=== PATIENT | female | born 1960 | race Caucasian/White ===

== ENCOUNTER 2018-10-15 12:31 | Emergency (ER) | payer BC, OTHER ==
[2018-10-15] MEDS ORDERED: Ondansetron PF 4 MG/2 ML Vial ONE ×2 (12:39→13:06)
[2018-10-15] MEDS ORDERED: Morphine 4 MG/ML VIAL ONE ×2 (12:46→13:56)
[2018-10-15] MEDS ORDERED: Ketorolac Tromethamine 30 MG/ML VIAL ONE (12:46)
[2018-10-15 12:59] LABS: #Basophils 0.1 thou/uL (0.0-0.2); #Eosinphils 0.1 thou/uL (0.0-0.7); #Monocytes 1.1 thou/uL (0.11-0.59); #Neutrophils 11.8 thou/uL (1.40-6.50); %Basophils 0.5 % (0.0-1.0); %Eosinophils 0.6 % (0.0-10.0); %Lymphocytes 13.1 % (21.0-51.0); %Monocytes 7.2 % (0.0-10.0); %Neutrophils 78.5 % (42.0-75.0); Hemoglobin 14.5 g/dL (12.0-16.0); Mean Corpuscular HGB CONC 33.1 g/dL (32.0-36.0); Mean Corpuscular Hemoglobin 33.2 pg (27.0-31.0); Mean Platelet Volume 6.9 fL (7.4-10.4); Platelet Count 310 thou/uL (130-400); RBC Distribution Width 10.8 % (11.5-14.5); Red Blood Cell (RBC) Count 4.37 mill/uL (4.20-5.40); White Blood Cell (WBC) Count 15.1 thou/uL (4.8-10.8)
[2018-10-15 13:20] LABS: ALT (SGPT) 28 U/L (8-55); AST (SGOT) 24 U/L (5-34); Albumin 4.7 g/dL (3.5-5.0); Alkaline Phosphatase 79 U/L (40-150); Anion Gap 20 mmol/L (10-20); BUN (Urea Nitrogen) 25 mg/dL (9.8-20.1); Bilirubin, Total 0.3 mg/dL (0.2-1.2); Calc. Creatinine Clearance 0 mL/min (70-130); Calcium 10.3 mg/dL (7.8-10.44); Carbon Dioxide 21 mmol/L (22-29); Chloride 102 mmol/L (98-107); Estimated GFR-MDRD 32; Globulin 2.7 g/dL (2.4-3.5); Glucose 139 mg/dL (70-105); Potassium 3.8 mmol/L (3.5-5.1); Protein, Total 7.4 g/dL (6.0-8.3); Sodium 139 mmol/L (136-145)
[2018-10-15 13:59] LABS: Bilirubin Negative (Negative); Blood, Urine Small (Negative); Clarity CLEAR (Clear); Glucose, Urine (Dipstick) Negative (Negative); Leukocyte Negative (Negative); Nitrite Negative (Negative); Protein, Urine (Dipstick) 100 mg/dL (Neg-Trace); Specific Gravity, Urine 1.006 (1.002-1.036); Urobilinogen 0.2 mg/dL (0.2-1.0); pH, Urine 6.5 (5.0-9.0)
[2018-10-15 14:02] LABS: Bacteria/HPF None Seen HPF (None Seen); Hyaline Casts/LPF 4-6 HYALINE CAST LPF (0-3 Hyaline); Pathc Cast-AUWi Flag 0.87 (0-2.49); WBC/HPF 0-3 HPF (0-3)
[2018-10-15] MEDS ORDERED: Promethazine HCl 25 MG/ML VIAL ONE (14:03)
[2018-10-15 14:30] LABS: Renal Epithelial 0-3 HPF (0-3); Transitional Epithelial 0-3 HPF (0-3)
--- NOTE | 2018-10-15 14:36 | CT ---
ABDOMEN CT WITHOUT CONTRAST PELVIC CT WITHOUT CONTRAST: Date: 10/15/18 HISTORY: Flank pain. Bilateral flank pain since 9:00 this morning. COMPARISON: 11/06/14. FINDINGS: ABDOMEN CT: Lung bases are clear. Heart size is normal. No pericardial effusion. Visualized aorta is of normal ca liber. No periaortic fat stranding. Note is made of a small hiatal hernia. No gastrohepatic, retrocrural, or periportal lymphadenopathy. Gallbladder is surgically absent. Limited evaluation of the solid organs due to lack of IV contrast administration. There is appropriate attenuation of the liver, spleen, pancreas, and right adrenal gland. 1.0 cm nodu le involving the left adrenal gland with attenuation coefficient of 12.6 Hounsfield units. Indetermin ate lesion. Exophytic cyst emanating from the upper pole of the right kidney measuring 0.9 x 1.2 cm with attenuat ion coefficient of 6 Hounsfield units. There is an exophytic hypodensity emanating from the lower mary e of the left kidney measuring 1.5 cm with an attenuation coefficient of 15 Hounsfield units. Cyst wi th a small peripheral calcification suspected. Bilaterally, no hydronephrosis, nephrolithiasis, or pe rinephric fat stranding. Bilateral ureters have a normal caliber. No hydroureter, periureteral fat stranding, or ureterolithia sis. Limited evaluation of the alimentary canal by lack of oral contrast. Nose is made of small hiatal her patrick. Gastric mucosa is unremarkable. Multiple normal caliber small bowel loops. Ileocecal junction is normal. Normal caliber appendix. Scattered fecal material in nondistended, nondilated colon. There a re diverticula in the sigmoid colon. No diverticulitis. CT PELVIS: No pelvic lymphadenopathy, free air, or free fluid. Unremarkable urinary bladder. Uterus is surgicall y absent. Stable postsurgical changes and dorsal column stimulator. IMPRESSION: 1. No evidence of obstructive uropathy. 2. Indeterminate lesion in the left adrenal gland. Nonemergent renal mass protocol CT can be perform ed. 3. Two cysts involving the left kidney. The cyst along the inferior pole of the left kidney has a sm all focus of calcification along its periphery. POS: [facility]
[2018-10-15] MEDS ORDERED: Sucralfate 1 GM/10 ML UDCUP ONE (15:13)
== END 2018-10-15 16:58 | disposition home or self-care (01) ==
LOC: ERS 12:31
DX: K21.9 Gastro-esophageal reflux disease without esophagitis (principal); R11.2 Nausea with vomiting, unspecified; I10 Essential (primary) hypertension; Z79.899 Other long term (current) drug therapy
CPT/HCPCS: 74176; 80053; 81003; 81015; 83690; 84484; 85025; 93005; 96361; 96365; 96375; 96376; J1885; J2270; J2405; J2550

== ENCOUNTER 2018-10-16 15:46 | Observation (INO) | payer OTHER ==
[2018-10-16] MEDS ORDERED: Promethazine HCl 25 MG/ML VIAL ONE (16:16)
[2018-10-16] MEDS ORDERED: Promethazine 25 MG TAB ONE (16:16)
[2018-10-16] MEDS ORDERED: Morphine 2 MG/ML SYRINGE ONE (16:40)
[2018-10-16 17:02] LABS: #Lymphocytes 0.9 thou/uL (1.20-3.40); #Neutrophils 9.2 thou/uL (1.40-6.50); %Basophils 0.3 % (0.0-1.0); %Eosinophils 0.4 % (0.0-10.0); %Lymphocytes 7.8 % (21.0-51.0); %Neutrophils 82.5 % (42.0-75.0); Hemoglobin 12.3 g/dL (12.0-16.0); Mean Corpuscular HGB CONC 33.4 g/dL (32.0-36.0); Mean Platelet Volume 6.7 fL (7.4-10.4); Platelet Count 216 thou/uL (130-400); RBC Distribution Width 10.9 % (11.5-14.5); Red Blood Cell (RBC) Count 3.61 mill/uL (4.20-5.40); White Blood Cell (WBC) Count 11.2 thou/uL (4.8-10.8)
[2018-10-16 17:18] LABS: Bilirubin Negative (Negative); Blood, Urine Small (Negative); Clarity CLOUDY (Clear); Glucose, Urine (Dipstick) Negative (Negative); Leukocyte Large (Negative); Nitrite Negative (Negative); Protein, Urine (Dipstick) Negative (Neg-Trace); Specific Gravity, Urine 1.011 (1.002-1.036); Urobilinogen 0.2 mg/dL (0.2-1.0); pH, Urine 5.5 (5.0-9.0)
[2018-10-16 17:22] LABS: Bacteria/HPF None Seen HPF (None Seen); Pathc Cast-AUWi Flag 1.45 (0-2.49); RBC/HPF 0-3 HPF (0-3)
[2018-10-16] MEDS ORDERED: Sucralfate 1 GM/10 ML UDCUP ONE (17:29)
[2018-10-16 17:33] LABS: Hyaline Casts/LPF 0-3 HYALINE CAST LPF (0-3 Hyaline); Transitional Epithelial 0-3 HPF (0-3)
--- NOTE | 2018-10-16 17:36 | CT ---
HEAD CT WITHOUT CONTRAST: 10/16/18 HISTORY: Loss of consciousness. Fall. COMPARISON: None. FINDINGS: No parenchymal hemorrhage. No extra-axial hematoma. No midline shift. Basilar cisterns are patent. Br ain volume is age appropriate. Cortical mitchell-white matter differentiation is preserved. No evidence of hydrocephalus. Calvarium is intact. Adequate aeration of the sinuses and mastoid air cells. IMPRESSION: No acute intracranial process. POS: [facility]
[2018-10-16 17:50] LABS: ALT (SGPT) 138 U/L (8-55); AST (SGOT) 70 U/L (5-34); Albumin 3.5 g/dL (3.5-5.0); Alkaline Phosphatase 72 U/L (40-150); Anion Gap 12 mmol/L (10-20); BUN (Urea Nitrogen) 35 mg/dL (9.8-20.1); Bilirubin, Total 0.6 mg/dL (0.2-1.2); Calc. Creatinine Clearance 0 mL/min (70-130); Calcium 8.4 mg/dL (7.8-10.44); Carbon Dioxide 20 mmol/L (22-29); Chloride 111 mmol/L (98-107); Estimated GFR-MDRD 16; Globulin 1.9 g/dL (2.4-3.5); Glucose 114 mg/dL (70-105); Potassium 4.1 mmol/L (3.5-5.1); Protein, Total 5.4 g/dL (6.0-8.3); Sodium 139 mmol/L (136-145)
[2018-10-16] MEDS ORDERED: cefTRIAXone\\ROCEPHIN 2 GM VIAL ONE (18:26)
[2018-10-16] MEDS ORDERED: Sodium Chloride 0.9% 100 ML ONE (18:26)
[2018-10-16] MEDS ORDERED: Ondansetron ODT 4 MG TAB SL PRN (20:43)
[2018-10-16] MEDS ORDERED: Ondansetron PF 4 MG/2 ML Vial IVP PRN (20:43)
[2018-10-16] MEDS ORDERED: Sodium Chloride 0.9% 1,000 ML IV SCH ×2 (20:43→22:15)
[2018-10-16] MEDS ORDERED: HYDROcodone/Acetaminophen 5/325 mg Tablet PO PRN ×2 (20:43)
[2018-10-16] MEDS ORDERED: Acetaminophen 325 MG TAB PO PRN (20:43)
[2018-10-16 21:18] VITALS: BMI 29.0
[2018-10-16] MEDS ORDERED: Promethazine 25 MG TAB PO PRN (21:57)
[2018-10-16] MEDS ORDERED: traMADol HCl 50 MG TAB PO PRN (21:58)
[2018-10-16] MEDS ORDERED: Morphine 4 MG/ML VIAL SLOW IVP PRN (22:02)
[2018-10-16] MEDS: traZODone HCl 50 MG TAB PO SCH (22:38)
[2018-10-17] MEDS ORDERED: diphenhydrAMINE 25 MG CAP PO PRN (00:19)
[2018-10-17] MEDS ORDERED: Sodium Chloride 0.9% 1,000 ML IV SCH (03:30)
[2018-10-17] MEDS ORDERED: Ondansetron PF 4 MG/2 ML Vial IVP PRN (03:30)
[2018-10-17] MEDS ORDERED: Ondansetron ODT 4 MG TAB SL PRN (03:31)
[2018-10-17] MEDS ORDERED: Acetaminophen 325 MG TAB PO PRN (03:31)
[2018-10-17 05:20] LABS: #Eosinphils 0.1 thou/uL (0.0-0.7); #Lymphocytes 1.3 thou/uL (1.20-3.40); #Monocytes 0.9 thou/uL (0.11-0.59); #Neutrophils 4.4 thou/uL (1.40-6.50); %Basophils 0.3 % (0.0-1.0); %Eosinophils 1.6 % (0.0-10.0); %Lymphocytes 19.7 % (21.0-51.0); %Monocytes 13.3 % (0.0-10.0); %Neutrophils 65.1 % (42.0-75.0); Mean Corpuscular HGB CONC 33.1 g/dL (32.0-36.0); Mean Corpuscular Hemoglobin 34.2 pg (27.0-31.0); Mean Platelet Volume 6.9 fL (7.4-10.4); Platelet Count 194 thou/uL (130-400); RBC Distribution Width 10.9 % (11.5-14.5); Red Blood Cell (RBC) Count 3.51 mill/uL (4.20-5.40); White Blood Cell (WBC) Count 6.8 thou/uL (4.8-10.8)
[2018-10-17 05:48] LABS: ALT (SGPT) 107 U/L (8-55); AST (SGOT) 44 U/L (5-34); Albumin 3.2 g/dL (3.5-5.0); Alkaline Phosphatase 67 U/L (40-150); Anion Gap 13 mmol/L (10-20); BUN (Urea Nitrogen) 30 mg/dL (9.8-20.1); Bilirubin, Total 0.4 mg/dL (0.2-1.2); Calc. Creatinine Clearance 27 mL/min (70-130); Calcium 7.9 mg/dL (7.8-10.44); Carbon Dioxide 20 mmol/L (22-29); Chloride 112 mmol/L (98-107); Estimated GFR-MDRD 18; Globulin 2.1 g/dL (2.4-3.5); Glucose 86 mg/dL (70-105); Potassium 4.1 mmol/L (3.5-5.1); Protein, Total 5.3 g/dL (6.0-8.3); Sodium 141 mmol/L (136-145)
[2018-10-17 06:16] LABS: Folate (Folic Acid) 10.1 ng/mL (7.0-31.4)
[2018-10-17] MEDS: D5 1/2 NS w/20 mEq KCL 1,000 ML IV SCH ×2 (08:53→16:59)
[2018-10-17] MEDS ORDERED: Cyanocobalamin 1000 MCG/ML VIAL IM SCH (09:00)
--- NOTE | 2018-10-17 16:08 | HP ---
PRIMARY CARE PHYSICIAN: Myself, Dr. Matthew Wylie. After the patient has returned back to [place], has been in [place] for approximately 2-1/2 years, had established with a physician there locally. She is transitioning back here for job in December. She has worked in a nursing field for many years. CHIEF COMPLAINT: Syncope. HISTORY OF PRESENT ILLNESS: The patient was seen in the emergency department the day prior to admission for abdomen pain, flank pain associated with her prior episodes of UTIs and renal calculi. CT showed no renal calculi. The patient was discharged home with pain medications and nausea medications. The patient returned home, slept well, however, subsequently had worsening abdomen pain. Following a trip to the restroom after dry heaves, the patient stood up and walk several feet and then fell over. After speaking with the patient, she had echo for similar episode 6 months ago in [place] with normal ejection fraction, no diastolic dysfunction, was diagnosed with vasovagal syncope following the donation of plasma dehydration. The patient does appear to be dehydrated on admission here. She has not donated any plasma for 6 weeks. She reports she has been doing that for money and help transition herself back to [place] at this point in time. In the emergency department, we found that the patient's urinalysis acutely changed and the patient went into acute renal failure in the last 36 hours, was given Rocephin and IV fluids and is responded well so far, has not really been ambulated yet, but denies any chest pain, shortness of breath, palpitations, headaches, vision changes. Positive mild abdomen pain, flank pain, dysuria. No lower extremity edema present. The patient denies any confusion. Review of vital signs on admission to floor, temperature of 98.4, pulse of 67, respiratory rate of 16, oxygen saturation 95% on room air, and blood pressure 121/54. Review of past medical, social, surgical history includes no known drug allergies, prior foot sprain with peroneal tendonitis in 2013, hypertension, chronic pain, depression, incomplete voiding, for which she has not followed up with a urologist in the last 3 years as recommended. PAST SURGICAL HISTORY: Include back surgery x2, , cholecystectomy, hysterectomy with BSO, knee arthroscopy, right thumb procedure, and unspecified bladder suspension. SOCIAL HISTORY: The patient denies current alcohol or drug use. Has more local social support of sister and daughter. CURRENT HOME MEDICATIONS: Listed as: 1. Trazodone 50 mg one tablet p.o. at bedtime. 2. Tramadol 50 mg one tablet p.o. q.4 to 6 hours p.r.n. pain. 3. Spironolactone 50 mg one tablet p.o. at bedtime. 4. Fluoxetine 40 mg one tablet p.o. at bedtime. 5. Diltiazem 180 mg one tablet p.o. at bedtime. 6. Zyrtec 10 mg one tablet p.o. daily. PHYSICAL EXAMINATION: GENERAL: The patient is alert and oriented, in no acute distress. HEENT: Head is normocephalic and atraumatic. Extraocular movements are intact. Sclerae are white, noninjected. Oral mucosa is slightly dry. NECK: Supple. HEART: Regular rate and rhythm at time of exam. No murmurs auscultated. LUNGS: Clear to auscultation bilaterally. No rubs or wheezes. ABDOMEN: Hyperactive bowel sounds. Nontender. Negative rebound or guarding. No formal CVA tenderness currently. EXTREMITIES: Lower extremities without cyanosis or edema. NEUROLOGIC: The patient is alert and oriented x3. No focal deficits. Speech is normal. The patient's daughter is at bedside. ASSESSMENT AND PLAN: Pyelonephritis, acute renal failure, vasovagal syncope, hypertension, depression, macrocytosis. Morning labs showed that the patient is deficient in B12 giving injection while inpatient and can follow up with oral therapy depending on trend. Continuing the patient's SSRI and diltiazem for blood pressure. The patient has never had any arrhythmia per self report. Given the echo was normal within 6 months, we will not repeat at this point in time. Both episodes are very classic for vasovagal syncope, especially exacerbated by patient's pyelonephritis. Fluid resuscitation with bolus overnight and now with continued IV fluids. Goal tomorrow to mobilize the patient and titrate diet and if the patient is stable, consider discharge home. Job ID: [id number] MTDD
[2018-10-17] MEDS: cefTRIAXone\\ROCEPHIN 2 GM in Sodium Chloride 0.9% 100 ML IVPB SCH (18:24)
[2018-10-17] MEDS ORDERED: FLUoxetine HCl 20 MG CAP PO SCH (21:00)
[2018-10-17] MEDS: traZODone HCl 50 MG TAB PO SCH (21:41)
[2018-10-18] MEDS: D5 1/2 NS w/20 mEq KCL 1,000 ML IV SCH ×2 (01:26→09:23)
[2018-10-18 05:06] LABS: #Basophils 0.1 thou/uL (0.0-0.2); #Eosinphils 0.2 thou/uL (0.0-0.7); #Lymphocytes 1.5 thou/uL (1.20-3.40); #Monocytes 0.8 thou/uL (0.11-0.59); #Neutrophils 4.1 thou/uL (1.40-6.50); %Eosinophils 2.9 % (0.0-10.0); %Lymphocytes 22.3 % (21.0-51.0); %Monocytes 11.8 % (0.0-10.0); %Neutrophils 61.9 % (42.0-75.0); Hemoglobin 12.3 g/dL (12.0-16.0); Mean Corpuscular HGB CONC 33.5 g/dL (32.0-36.0); Mean Corpuscular Hemoglobin 34.1 pg (27.0-31.0); Mean Platelet Volume 7.1 fL (7.4-10.4); Platelet Count 225 thou/uL (130-400); RBC Distribution Width 10.8 % (11.5-14.5); Red Blood Cell (RBC) Count 3.61 mill/uL (4.20-5.40); White Blood Cell (WBC) Count 6.6 thou/uL (4.8-10.8)
[2018-10-18 05:37] LABS: ALT (SGPT) 76 U/L (8-55); AST (SGOT) 23 U/L (5-34); Albumin 3.5 g/dL (3.5-5.0); Alkaline Phosphatase 68 U/L (40-150); Anion Gap 12 mmol/L (10-20); BUN (Urea Nitrogen) 21 mg/dL (9.8-20.1); Bilirubin, Total Less than 0.2 mg/dL (0.2-1.2); Calc. Creatinine Clearance 37 mL/min (70-130); Calcium 8.8 mg/dL (7.8-10.44); Carbon Dioxide 18 mmol/L (22-29); Chloride 111 mmol/L (98-107); Estimated GFR-MDRD 26; Globulin 2.3 g/dL (2.4-3.5); Glucose 107 mg/dL (70-105); Potassium 4.2 mmol/L (3.5-5.1); Protein, Total 5.8 g/dL (6.0-8.3); Sodium 137 mmol/L (136-145)
[2018-10-18 12:10] VITALS: BP 149/81; TEMP 98
[2018-10-18] MEDS: cefTRIAXone\\ROCEPHIN 2 GM in Sodium Chloride 0.9% 100 ML IVPB SCH (14:06)
--- NOTE | 2018-10-18 17:17 | DIS ---
DATE OF ADMISSION: 10/16/2018 DATE OF DISCHARGE: 10/18/2018 PRIMARY CARE PHYSICIAN: Dr. Matthew Wylie. CHIEF COMPLAINT: Abdomen pain, syncope. HISTORY OF PRESENT ILLNESS: The patient has long-standing history of UTIs and kidney stones, presented to the emergency department prior to being admitted the day before with some flank pain. She had a CAT scan that did not show any renal calculi and no obstructions, was discharged home, notably had a vasovagal syncopal episode, had echo approximately six months before, which was normal for similar vasovagal syncopal episode, worked up in [place] following dehydration and giving of plasma. Repeat urinalysis, the patient more grossly fit the profile of UTI to pyelonephritis, was admitted for acute renal failure and infection. The patient had shocked liver, was improved, regarding creatinine and liver function enzymes with hydration and was treated with Rocephin. Urine culture showed no growth at 48 hours. Blood cultures now showed no growth at 48 hours however, the patient felt remarkably better following antibiotics, IV hydration, was ambulatory, and eating well prior to discharge. Discharged home on Keflex 500 mg b.i.d. with followup in clinic for repeat testing of liver enzymes and creatinine with myself, Dr. Matthew Wylie in three days. We will release to work at that point in time. DIAGNOSES: Include; 1. Pyelonephritis. 2. Vasovagal syncope. 3. Acute renal failure. 4. Hypertension. 5. Depression. 6. Macrocytosis. DISCHARGE MEDICATIONS: Include at home; 1. Cetirizine 10 mg. 2. Diltiazem 180 mg. 3. Fluoxetine 40 mg. 4. Promethazine 12.5 mg q.6 hours p.r.n. for nausea. 5. Spironolactone 50 mg at bedtime. 6. Tramadol 50 mg q.4 hours p.r.n. for pain. 7. Trazodone 50 mg one tablet p.o. at bedtime. 8. Keflex as above. DISCHARGE DIET: Renal. DISCHARGE ACTIVITY: As tolerated with slow to get up from a supine position to sit and to stand. DISCHARGE CONDITION: Fair. Job ID: [id number]
== END 2018-10-18 14:58 | disposition home or self-care (01) ==
LOC: ERS 15:46 → 2SW 20:39
PROVIDERS: ADMIT Family Medicine; ATTEND Family Medicine
DX: N12 Tubulo-interstitial nephritis, not specified as acute or chronic (principal); R55 Syncope and collapse; N17.9 Acute kidney failure, unspecified; I10 Essential (primary) hypertension; F32.9 Major depressive disorder, single episode, unspecified; E53.0 Riboflavin deficiency; Z90.49 Acquired absence of other specified parts of digestive tract; Z90.710 Acquired absence of both cervix and uterus; Z90.722 Acquired absence of ovaries, bilateral; Z79.2 Long term (current) use of antibiotics; Z79.899 Other long term (current) drug therapy; Z98.890 Other specified postprocedural states
CPT/HCPCS: 36415; 70450; 80053; 81003; 81015; 82607; 82746; 83605; 84484; 85025; 87040; 87086; 93005; 93010; 96361; 96365; 96372; 96375; 96376; G0378; J0696; J2270; J2550; J3420; J7050; Q0163; Q0169

== ENCOUNTER 2019-03-01 09:11 | Outpatient (CLI) | payer BC ==
[2019-03-01] MEDS ORDERED: ISOVUE-370 76%-LOCM 1 ML ONE (12:07)
--- NOTE | 2019-03-01 13:39 | CT ---
CT ABDOMEN AND PELVIS WITH AND WITHOUT IV CONTRAST: DATE: 03/01/2019. PROVIDED CLINICAL HISTORY: Recurrent UTIs. FINDINGS: Comparison is made with the study dated 10/15/2018. The visualized lung bases are free of significant opacity. Small hiatal hernia. Dorsal column stimu lator device partially visualized. Bilateral renal hypodensities, the largest on the left demonstrating Hounsfield units compatible with simple cysts and the smaller of which bilaterally are too small to definitively characterize but sta tistically reflect cysts. The liver, spleen, pancreas, and adrenal glands demonstrate an unremarkable CT appearance. Mild nodu larity to the left adrenal gland without discrete mass. The delayed images demonstrate no evidence for filling defect involving the renal collecting systems, ureters, or urinary bladder. There is no bowel dilatation, inflammatory fat stranding, free fluid, or lymph node enlargement appar ent. Scattered vascular calcifications are seen. Sigmoid colonic diverticulosis without CT evidence for diverticulitis. The osseous structures demonstrate no concerning lytic or blastic lesions. Postoperative changes are seen involving the lower lumbar spine. IMPRESSION: 1. Bilateral simple-appearing renal cysts. 2. Slight nodularity to the left adrenal gland without evidence for a discrete mass. 3. No evidence for an acute process. Chronic findings as above. POS: [facility]
== END 2019-03-01 09:12 | disposition home or self-care (01) ==
LOC: BICCT 09:11
PROVIDERS: ATTEND Urology
DX: R31.29 Other microscopic hematuria (principal); E27.8 Other specified disorders of adrenal gland; N28.1 Cyst of kidney, acquired; R93.421 Abnormal radiologic findings on diagnostic imaging of right kidney; R93.422 Abnormal radiologic findings on diagnostic imaging of left kidney; K57.30 Diverticulosis of large intestine without perforation or abscess without bleeding; Z87.440 Personal history of urinary (tract) infections; Z87.448 Personal history of other diseases of urinary system; Z87.442 Personal history of urinary calculi; Z98.890 Other specified postprocedural states
CPT/HCPCS: 74178; Q9966

== ENCOUNTER 2019-03-24 14:18 | Outpatient (CLI) | payer BC ==
--- NOTE | 2019-03-24 14:51 | CT ---
CT BRAIN WITHOUT CONTRAST: HISTORY: Skull anomaly COMPARISON: 10/16/2018 FINDINGS: No evidence of acute infarct, hemorrhage, midline shift or abnormal extra-axial fluid collections is seen. The ventricular size is appropriate and the basilar cisterns are patent. The bony calvarium is intact. The visualized paranasal sinuses and mastoid air cells are well aerated. IMPRESSION: No CT evidence of acute intracranial process.
== END 2019-03-24 14:19 | disposition home or self-care (01) ==
LOC: BICCT 14:18
PROVIDERS: ATTEND Family Medicine
DX: Q75.9 Congenital malformation of skull and face bones, unspecified (principal)
CPT/HCPCS: 70450

== ENCOUNTER 2019-06-14 07:22 | Day surgery (SDC) | payer BC ==
[2019-06-11 15:44] VITALS: BMI 26.7
[~2019-06-14 07:22] MED LIST: FLU VACC QS2019-20(6MOS UP)/PF 60 MCG/0.5 ML SYRINGE IM ONE
--- NOTE | 2019-06-14 08:42 | RAD ---
FOUR VIEWS LUMBAR SPINE: HISTORY: Status post laminectomy syndrome. FINDINGS: Dorsal column stimulator leads are noted. The generator has been removed. Five lumbar-type vertebral bodies. Posterior transpedicular screws at L5 and S1. No perihardware luce ncy. Anterior screws traversing the L5-S1 disc space are noted. Prosthesis at the L5-S1 disc space is identified. Lumbar spine vertebral body height is maintained. No fracture. Neutral position: No spondylolisthesis or spondylolysis. Upon extension and flexion, no abnormal motion. No significant loss of disc space height. IMPRESSION: Uncomplicated lumbar fusion at L5-S1. No significant spondylolisthesis or spondylolysis in the neutra l position. No abnormal motion upon flexion or extension. Transcribed Date/Time: 06/14/2019 8:54 AM
--- NOTE | 2019-06-14 09:29 | RAD ---
LUMBAR MYELOGRAM: HISTORY: Laminectomy syndrome. COMPARISON: None. FINDINGS: Successful lumbar puncture for intrathecal contrast administration lumbar spine. Total of 9 cc of Iso jennifer-M 200 contrast was administered intrathecally. No immediate or postprocedure complications. TECHNIQUE: Consent obtained to perform lumbar a puncture for intrathecal contrast administration. The patient's back was evaluated. The L1-L2 level was deemed appropriate. Skin was prepped and draped in sterile fashion. 1% lidocaine, buffered with sodium bicarbonate, was used for local anesthesia. Under fluoros copic guidance, a 22-gauge spinal needle was advanced into the CSF space. A total of 9 cc of Isovue-M 200 contrast was administered intrathecally. The patient tolerated the procedure well. No im mediate or postprocedure complication. IMPRESSION: Successful lumbar myelogram. Please refer to separate postmyelogram CT report for further detail. Transcribed Date/Time: 06/14/2019 9:34 AM
--- NOTE | 2019-06-14 09:52 | CT ---
POSTMYELOGRAM LUMBAR SPINE CT: HISTORY: Status post laminectomy syndrome. COMPARISON: None. FINDINGS: Five lumbar type vertebral bodies. Lumbar spine vertebral body height is maintained. No fracture. Appropriate attenuation of the paraspinal muscles. Appropriate attenuation of the visualized solid organs. Bilaterally no obstructive uropathy. Exophytic hypodensity emanating from the lower pole of the left kidney has attenuation coefficient of 15.5 Hounsfield units. A small focus of peripheral calcification is noted. Lesion measures 1.7 x 1.7 cm. Correlation is made with a CT from 03/01/2019 demonstrates a slightly complex cyst. Straightening of normal lumbar lordosis may be due to patient position or muscle spasm. No spondyloli sthesis or spondylolysis. Bilateral transpedicular screws at L5 and S1. No perihardware lucency. There is an anterior fusion at L5-S1. Disc prosthesis at L5-S1 is noted. Conus medullaris terminates at the inferior aspect of L1. T10-T11: No significant central canal stenosis or significant neural foraminal narrowing. T12-L1: No significant central canal stenosis or significant neural foraminal narrowing. T12-L1: No significant central canal stenosis or significant neural foraminal narrowing. L1-L2: No significant central canal stenosis or significant neural foraminal narrowing. L2-L3: No significant central canal stenosis or significant neural foraminal narrowing. L3-L4: No significant central canal stenosis or significant neural foraminal narrowing. L4-L5: Laminectomy defect. No significant central canal stenosis or significant neural foraminal narr owing. L5-S1: Disc prosthesis. No significant central canal stenosis or significant neural foraminal narrowi ng. IMPRESSION: 1. Uncomplicated lumbar fusion at L5-S1. 2. No significant central canal stenosis or significant neural foraminal narrowing throughout the lum bar spine. 3. Redemonstration of slightly complex cyst emanating from the lower pole of the left kidney, incompl etely evaluated. Refer to the abdomen and pelvic CT from 03/01/2019 for further detail. Transcribed Date/Time: 06/14/2019 10:15 AM
== END 2019-06-14 10:20 | disposition home or self-care (01) ==
LOC: RAD 07:22
PROVIDERS: ATTEND Family Medicine
DX: M51.16 Intervertebral disc disorders with radiculopathy, lumbar region (principal); M96.1 Postlaminectomy syndrome, not elsewhere classified; M70.62 Trochanteric bursitis, left hip; G89.4 Chronic pain syndrome; F32.9 Major depressive disorder, single episode, unspecified; I10 Essential (primary) hypertension; Z79.899 Other long term (current) drug therapy; Z88.8 Allergy status to other drugs, medicaments and biological substances
CPT/HCPCS: 62304; 72120; 72132

== ENCOUNTER 2020-02-17 13:31 | Outpatient (CLI) | payer BC ==
--- NOTE | 2020-02-17 14:01 | RAD ---
RADIOGRAPH CERVICAL SPINE 8 VIEWS: DATE: 02/17/2020 HISTORY: 60-year-old female with cervicalgia. COMPARISON: None TECHNIQUE: Lateral, flexion and extension, bilateral oblique, AP, open-mouth, and Fuchs, views. FINDINGS: Vertebral body heights are maintained. No instability between flexion and extension. Loss of lordosis. No major subluxation. Degenerative disc changes: C4-5: Mild disc space narrowing C5-6: Mild to moderate disc space narrowing with endplate marginal osteophytes protruding anteriorly into prevertebral space. C6-7: Moderate to severe disc space narrowing. Endplate sclerosis. Small marginal osteophytes. The rest of the disc spaces are maintained. Left neural foraminal stenosis at C3-4 due to high-grade left facet DJD. Asymmetrically moderate to severe joint space narrowing at left lateral C1-2 facet joint. No prevertebral soft tissue swelling. IMPRESSION: 1) cervical spondylosis. 2.) Moderate degenerative disc disease at C5-6 and C6-7. 3) high-grade left C3-4 facet osteoarthrosis. 4) high-grade arthrosis at left atlantoaxial joint.
== END 2020-02-17 13:32 | disposition home or self-care (01) ==
LOC: BICRAD 13:31
PROVIDERS: ATTEND Family Medicine
DX: M54.2 Cervicalgia (principal); G56.32 Lesion of radial nerve, left upper limb; M50.322 Other cervical disc degeneration at C5-C6 level; M47.812 Spondylosis without myelopathy or radiculopathy, cervical region
CPT/HCPCS: 72052

== ENCOUNTER 2020-02-17 14:06 | Emergency (ER) | payer BC, OTHER ==
[2020-02-18 12:19] LABS: SARS-CoV-2 MS2 Positive; SARS-CoV-2 N Gene Negative; SARS-CoV-2 S Gene Negative; SARS-CoV-2 orf1ab Negative
== END 2020-02-17 15:12 | disposition home or self-care (01) ==
LOC: ERS 14:06
DX: Z20.828 Contact with and (suspected) exposure to other viral communicable diseases (principal); I10 Essential (primary) hypertension
CPT/HCPCS: 87635; 99283; U0003

== ENCOUNTER 2020-07-14 11:20 | Outpatient (CLI) | payer BC ==
--- NOTE | 2020-07-14 11:41 | MMO ---
Bilateral MAMMO Bilat Screen [facility]. CLINICAL HISTORY: Patient is 60 years old and is seen for screening. The patient has no family history of breast cancer. The patient has no personal history of cancer. VIEWS: The views performed were: bilateral craniocaudal with tomosynthesis and bilateral mediolateral oblique with tomosynthesis. This study has been interpreted with the assistance of computer-aided detection. MAMMOGRAM FINDINGS: There are scattered fibroglandular densities. There are no suspicious masses, suspicious calcifications, or new areas of architectural distortion. IMPRESSION: THERE IS NO MAMMOGRAPHIC EVIDENCE OF MALIGNANCY. A ROUTINE FOLLOW-UP MAMMOGRAM IN 1 YEAR IS RECOMMENDED. THE RESULTS OF THIS EXAM WERE SENT TO THE PATIENT. ACR BI-RADS Category 1 - Negative MAMMOGRAPHY NOTE: 1. A negative mammogram report should not delay a biopsy if a dominant of clinically suspicious mass is present. 2. Approximately 10% to 15% of breast cancers are not detected by mammography. 3. Adenosis and dense breasts may obscure an underlying neoplasm. Reported by: TONY NUNN MD Electonically Signed: [id number]
== END 2020-07-14 11:21 | disposition home or self-care (01) ==
LOC: BICMAMMO 11:20
PROVIDERS: ATTEND Family Medicine
DX: Z12.31 Encounter for screening mammogram for malignant neoplasm of breast (principal)
CPT/HCPCS: 77063; 77067

== ENCOUNTER 2020-07-19 08:46 | Outpatient (CLI) | payer BC ==
--- NOTE | 2020-07-19 09:50 | RAD ---
RIGHT ELBOW 4 VIEWS: HISTORY: Elbow pain. The patient fell in bathtub a month ago. FINDINGS: There are some mild arthritic changes with spurring of the coronoid process. There is no fracture or joint effusion. IMPRESSION: No evidence of a fracture. POS: [facility]
--- NOTE | 2020-07-19 09:58 | RAD ---
3 VIEWS RIGHT HAND: Date: 07/19/2020 COMPARISON: None. HISTORY: Right hand pain. Pain is in the fourth carpal bone. FINDINGS: Three views of the right hand show no evidence of acute fracture or dislocation. No degenerative olson ges are seen. No soft tissue swelling is seen. IMPRESSION: No evidence of acute osseous abnormality. POS: [facility]
== END 2020-07-19 08:47 | disposition home or self-care (01) ==
LOC: BICRAD 08:46
PROVIDERS: ATTEND Family Medicine
DX: M79.641 Pain in right hand (principal); M25.521 Pain in right elbow

== ENCOUNTER 2020-09-25 13:35 | Outpatient (CLI) | payer BC | END 2020-09-25 13:36 | disposition home or self-care (01) | LOC: CTENTCT 13:35 | PROVIDERS: ATTEND Student in an Organized Health Care Education/Training Program | DX: J32.9 Chronic sinusitis, unspecified (principal) | CPT/HCPCS: 70486 ==

== ENCOUNTER 2020-11-29 12:32 | Observation (INO) | payer BC ==
[~2020-11-29 12:32] MED LIST changes: -FLU VACC QS2019-20(6MOS UP)/PF 60 MCG/0.5 ML SYRINGE IM ONE; +Iopamidol 370 76% 100 ML VIAL ONE
[2020-11-29] MEDS ORDERED: Morphine 4 MG/ML VIAL ONE (12:50)
[2020-11-29] MEDS ORDERED: Ondansetron PF 4 MG/2 ML Vial ONE (13:03)
[2020-11-29 13:39] LABS: #Basophils 0.1 thou/uL (0.0-0.2); #Eosinphils 0.1 thou/uL (0.0-0.7); #Monocytes 0.8 thou/uL (0.11-0.59); #Neutrophils 3.9 thou/uL (1.40-6.50); %Basophils 0.9 % (0.0-1.0); %Eosinophils 1.1 % (0.0-10.0); Hemoglobin 12.7 g/dL (12.0-16.0); Mean Corpuscular HGB CONC 33.9 g/dL (32.0-36.0); Mean Corpuscular Hemoglobin 33.2 pg (27.0-31.0); Mean Corpuscular Volume 97.9 fL (78.0-98.0); Mean Platelet Volume 6.5 fL (7.4-10.4); Platelet Count 273 thou/uL (130-400); RBC Distribution Width 11.5 % (11.5-14.5); Red Blood Cell (RBC) Count 3.82 mill/uL (4.20-5.40); White Blood Cell (WBC) Count 7.8 thou/uL (4.8-10.8)
[2020-11-29 14:09] LABS: ALT (SGPT) 53 U/L (8-55); AST (SGOT) 69 U/L (5-34); Albumin 4.3 g/dL (3.4-4.8); Alkaline Phosphatase 71 U/L (40-110); Anion Gap 12 mmol/L (10-20); BUN (Urea Nitrogen) 12 mg/dL (9.8-20.1); Bilirubin, Total 0.5 mg/dL (0.2-1.2); Calc. Creatinine Clearance 0 mL/min (70-130); Calcium 8.8 mg/dL (7.8-10.44); Carbon Dioxide 27 mmol/L (23-31); Chloride 106 mmol/L (98-107); Globulin 2.4 g/dL (2.4-3.5); Glucose 94 mg/dL (80-115); Lipase 47 U/L (8-78); Potassium 3.9 mmol/L (3.5-5.1); Protein, Total 6.7 g/dL (5.8-8.1); Sodium 141 mmol/L (136-145)
[2020-11-29 14:31] LABS: Bilirubin Negative (Negative); Blood, Urine Negative (Negative); Clarity Clear (Clear); Glucose, Urine (Dipstick) Normal (Negative); Ketone, Urine Negative (Negative); Leukocyte Negative Leu/uL (Negative); Nitrite Negative (Negative); Protein, Urine (Dipstick) Negative (Neg-Trace); Specific Gravity, Urine 1.009 (1.002-1.036); Urobilinogen Normal mg/dL (Less than 2)
[2020-11-29] MEDS ORDERED: Aspirin 325 MG TAB ONE (16:10)
[2020-11-29] MEDS ORDERED: Acetaminophen 325 MG TAB PO PRN (16:24)
[2020-11-29 17:20] LABS: Troponin I Less than 0.010 ng/mL (< 0.028)
[2020-11-29 20:33] LABS: Troponin I Less than 0.010 ng/mL (< 0.028)
[2020-11-29] MEDS ORDERED: FLUoxetine HCl 20 MG CAP PO SCH (21:00)
[2020-11-29] MEDS ORDERED: Spironolactone 25 MG TAB PO SCH (21:00)
[2020-11-29 21:27] VITALS: BMI 25.5
[2020-11-30] MEDS ORDERED: Aspirin Chewable 81 MG TAB PO SCH (09:00)
[2020-11-30] MEDS ORDERED: Pantoprazole 40 MG VIAL IVP SCH (09:00)
[2020-11-30] MEDS ORDERED: Bupropion 150 MG SR TAB PO SCH (09:00)
[2020-11-30 09:10] LABS: SARS-CoV-2 PCR by NAA Not Detected (NotDetected)
[2020-11-30] MEDS ORDERED: Iopamidol 370 76% 100 ML VIAL ONE (11:26)
[2020-11-30 11:47] VITALS: BP 166/75; TEMP 98
[2020-11-30] MEDS ORDERED: Regadenoson 0.4 MG/5 ML SYRINGE ONE (13:24)
== END 2020-11-30 14:19 | disposition home or self-care (01) ==
LOC: ERS 12:32 → 2SW 16:01
PROVIDERS: ADMIT Internal Medicine; ATTEND Internal Medicine
DX: R55 Syncope and collapse (principal); I44.0 Atrioventricular block, first degree; I10 Essential (primary) hypertension; K21.9 Gastro-esophageal reflux disease without esophagitis; R07.89 Other chest pain; R10.9 Unspecified abdominal pain; E78.5 Hyperlipidemia, unspecified; M10.9 Gout, unspecified; G89.29 Other chronic pain; M54.9 Dorsalgia, unspecified; N28.1 Cyst of kidney, acquired; K44.9 Diaphragmatic hernia without obstruction or gangrene; Z79.899 Other long term (current) drug therapy; Z20.822 Contact with and (suspected) exposure to COVID-19
CPT/HCPCS: 36415; 71045; 71275; 72193; 74170; 74174; 78452; 80053; 80061; 81003; 83605; 83690; 83735; 84443; 84484; 85025; 87635; 93005; 93017; 94760; 96374; 96375; A9500; C9113; G0378; J2270; J2405; J2785; Q9967; U0003; U0005

== ENCOUNTER 2021-08-15 19:00 | Outpatient (CLI) | payer BC | END 2021-08-15 19:01 | disposition home or self-care (01) | LOC: SLEEPLAB 19:00 | PROVIDERS: ATTEND Student in an Organized Health Care Education/Training Program | DX: G47.33 Obstructive sleep apnea (adult) (pediatric) (principal); R06.89 Other abnormalities of breathing; R53.83 Other fatigue; R09.89 Other specified symptoms and signs involving the circulatory and respiratory systems; K21.9 Gastro-esophageal reflux disease without esophagitis; R06.83 Snoring; G47.10 Hypersomnia, unspecified; I10 Essential (primary) hypertension; F32.9 Major depressive disorder, single episode, unspecified; G47.00 Insomnia, unspecified; G47.51 Confusional arousals | CPT/HCPCS: 95810 ==

== ENCOUNTER 2023-08-19 12:04 | Outpatient (CLI) | payer MEDICARE, BC | END 2023-08-19 12:05 | disposition home or self-care (01) | LOC: BICMAMMO 12:04 | PROVIDERS: ATTEND Family Medicine | DX: Z12.31 Encounter for screening mammogram for malignant neoplasm of breast (principal) | CPT/HCPCS: 77063; 77067 ==

== ENCOUNTER 2024-08-03 13:05 | Outpatient (CLI) | payer MEDICARE, BC | END 2024-08-03 13:06 | disposition home or self-care (01) | LOC: BICCT 13:05 | PROVIDERS: ATTEND Family Medicine | DX: M79.672 Pain in left foot (principal) ==